=== PATIENT | male | born 1970 | race American Indian/Alaskan Native ===

== ENCOUNTER 2023-06-29 13:49 | Outpatient (CLI) | payer OTHER, SELFPAY ==
--- NOTE | ~2023-06-29 | MR_ITS ---
MRI of the left wrist Technique: Coronal T1 weighted and proton density fat sat images, and axial and sagittal proton-densi ty and proton-density fat-sat images were acquired. Following intravenous administration of 18 cc Mul tiHance gadolinium, T1-weighted fat-sat imaging was performed in the axial, coronal, and sagittal anali luan. Clinical History: Pain Findings: Exam degraded by motion artifact. Scapholunate ligament is intact, there is no widening of the scapholunate interval. Lunotriquetral ligament is intact. TFCC is intact, without evidence of tea r/perforation. No fracture identified. There is a benign-appearing intraosseous lesion at the distal scaphoid, with thin sclerotic margin, and T2 hyperintensity, possibly subchondral cyst or geode versus other benign- appearing lesion. No other bone marrow signal abnormality seen. Joint spaces and the wrist appear int act. No significant joint effusion. Flexor tendons and carpal tunnel are unremarkable. Extensor tendons are intact. There is mild nonspec ific soft tissue edema just volar to the distal radius and just superficial to the volar aspect of th e scaphoid. No soft tissue mass or fluid collection evident. IMPRESSION: Mild nonspecific soft tissue edema at the volar aspect of the distal radius/scaphoid, could indicate nonspecific soft tissue injury or inflammation. No soft tissue mass or fluid collection evident. No ligamentous injury or fracture seen. Benign intraosseous lesion of the distal scaphoid, as detailed above. Reviewed, dictated and finalized at [facility]. IMPRESSION: Mild nonspecific soft tissue edema at the volar aspect of the distal radius/sca phoid, could indicate nonspecific soft tissue injury or inflammation. No soft t issue mass or fluid collection evident. No ligamentous injury or fracture seen. Benign intraosseous lesion of the distal scaphoid, as detailed above.
== END 2023-06-29 13:50 ==
LOC: MICIMG 13:50
PROVIDERS: PCP Family Medicine; Visit Provider Plastic Surgery
DX: M25.532 Pain in left wrist (principal)
CPT/HCPCS: 73223; A9577